=== PATIENT | female | born 1950 | race Caucasian/White ===

== ENCOUNTER → 2025-05-21 06:58 | Outpatient (CLI) | payer OTHER, SELFPAY ==
--- NOTE | 2025-05-21 07:02 | DI.US.S_ITS ---
PROCEDURE: US CAROTID DOPPLER BI INDICATIONS: BILATERAL CAROTID ARTERY STENOSIS TECHNIQUE: Color and pulse Doppler interrogation was performed of both carotid systems, with image documentation and velocity measurements. COMPARISON: None. FINDINGS: Stenosis calculations are based on SRU ([employer] in [employer]) criteria. Right side: Brachial blood pressure: 137/68 mm Hg. Common carotid artery peak systolic velocity: 74 cm/sec. Internal carotid artery peak systolic velocity: 93 cm/sec. Internal carotid artery end diastolic velocity: 21 cm/sec. External carotid artery peak systolic velocity: 101 cm/sec. ICA/CCA peak systolic ratio: 1.3 . Mcgraw scale imaging description: Significant plaque at the bifurcation Percent internal carotid artery stenosis: 50-69% stenosis . Vertebral artery: Flow direction is antegrade. Left side: Brachial blood pressure: Not obtained Common carotid artery peak systolic velocity: 89 cm/sec. Internal carotid artery peak systolic velocity: 122 cm/sec. Internal carotid artery end diastolic velocity: 33 cm/sec. External carotid artery peak systolic velocity: 230 cm/sec. ICA/CCA peak systolic ratio: 1.4 . Mcgraw scale imaging description: Significant plaque at the bifurcation Percent internal carotid artery stenosis: Less than 50% stenosis Vertebral artery: Flow direction is antegrade. IMPRESSION: 1. In the right carotid artery, there is less than 50% stenosis based on peak systolic velocity criteria. 2. In the left carotid artery, there is less than 50% stenosis based on peak systolic velocity criteria. 3. Antegrade vertebral arteries. 4. Increased velocity at the right external carotid artery consistent with stenosis. Dictated by: Blanche Alva M.D. on 05/21/2025 at 19:25 Approved by: Blanche Alva M.D. on 05/21/2025 at 19:27
== END ==
PROVIDERS: PCP Nurse Practitioner; Referring Provider Internal Medicine Cardiovascular Disease; Visit Provider Internal Medicine Cardiovascular Disease
DX: I65.23 Occlusion and stenosis of bilateral carotid arteries (principal)
CPT/HCPCS: 93880